=== PATIENT | female | born 1945 | race Caucasian/White ===

== ENCOUNTER 2017-09-28 09:41 | Emergency (ER) | payer MEDICARE ==
--- NOTE | 2017-09-28 10:28 | RAD ---
SACRUM AND COCCYX 3 VIEWS: Date: 09/28/17 HISTORY: Fall. Low back pain. FINDINGS/IMPRESSION: No displaced fracture or dislocation is seen. POS: [facility]
--- NOTE | 2017-09-28 10:31 | RAD ---
LUMBAR SPINE 3 VIEWS: Date: 09/28/17 HISTORY: Fall, back pain. FINDINGS/IMPRESSION: Degenerative changes are present. There is minimal anterolisthesis of L4 over L5 and L3 over L4 verte bral bodies. There is suggestion of a nondisplaced fracture involving the proximal coccyx. POS: [facility]
[2017-09-28] MEDS ORDERED: Ketorolac Tromethamine 30 MG/ML VIAL ONE (10:58)
--- NOTE | 2017-09-28 11:15 | CT ---
CT BRAIN WITHOUT CONTRAST: HISTORY: Fall. Hit back of head. No loss of consciousness. Headache. FINDINGS: No evidence of infarct, hemorrhage, midline shift, or abnormal extraaxial fluid collections is seen. The ventricular size is normal and the basilar cisterns are patent. The bony calvarium is intact. The visualized paranasal sinuses are well aerated. IMPRESSION: No CT evidence of acute intracranial process. POS: [facility]
--- NOTE | 2017-09-29 07:38 | RAD ---
SACRUM AND COCCYX 3 VIEWS: Date: 09/1217 HISTORY: Fall, low back pain. FINDINGS/IMPRESSION: There is a questionable nondisplaced fracture involving the proximal coccyx, which is better seen on the lumbar radiographs from the same date. POS: [facility]
== END 2017-09-28 11:21 | disposition home or self-care (01) ==
LOC: SCSER 09:41
DX: S32.2XXA Fracture of coccyx, initial encounter for closed fracture (principal); R51 Headache; J44.9 Chronic obstructive pulmonary disease, unspecified; I10 Essential (primary) hypertension; E03.9 Hypothyroidism, unspecified; Z87.891 Personal history of nicotine dependence; Z79.899 Other long term (current) drug therapy; W01.0XXA Fall on same level from slipping, tripping and stumbling without subsequent striking against object, initial encounter
CPT/HCPCS: 70450; 72100; 72220; 96372; J1885

== ENCOUNTER 2017-10-29 11:16 | Inpatient (IN) | payer MEDICARE ==
--- NOTE | 2017-10-29 11:46 | RAD ---
PORTABLE CHEST 1 VIEW: Date: 10/29/17 Time: 1129 hours HISTORY: Dyspnea. FINDINGS: Comparison made with exam of 10/16/17. The heart size is normal. Changes of COPD are again seen. No focal areas of consolidation, pneumothor ax, or pleural effusions are seen. Left humeral head prosthesis remains in place. IMPRESSION: No acute process. POS: [facility]
[2017-10-29 12:30] LABS: #Eosinphils 0.1 thou/uL (0.0-0.7); #Lymphocytes 1.2 thou/uL (1.20-3.40); #Monocytes 0.9 thou/uL (0.11-0.59); #Neutrophils 8.5 thou/uL (1.40-6.50); %Basophils 0.2 % (0.0-1.0); %Eosinophils 0.9 % (0.0-10.0); %Lymphocytes 11.2 % (21.0-51.0); %Monocytes 8.4 % (0.0-10.0); %Neutrophils 79.3 % (42.0-75.0); Hemoglobin 13.7 g/dL (12.0-16.0); Mean Corpuscular Hemoglobin 31.3 pg (27.0-31.0); Mean Corpuscular Volume 94.8 fl (81.0-99.0); Mean Platelet Volume 8.4 fL (7.4-10.4); Platelet Count 244 thou/uL (130-400); RBC Distribution Width 12.7 % (11.5-14.5); Red Blood Cell (RBC) Count 4.36 mill/uL (4.20-5.40); White Blood Cell (WBC) Count 10.7 thou/uL (4.8-10.8)
[2017-10-29] MEDS ORDERED: Albuterol Sulfate 2.5 mg/3 ml Neb ONE ×2 (12:39→15:26)
[2017-10-29] MEDS ORDERED: Dexamethasone 10 MG/ML VIAL ONE (12:39)
[2017-10-29 12:42] LABS: ALT (SGPT) 16 U/L (8-55); AST (SGOT) 15 U/L (5-34); Albumin 3.6 g/dL (3.4-4.8); Alkaline Phosphatase 59 U/L (40-150); Anion Gap 11 mmol/L (10-20); BUN (Urea Nitrogen) 7 mg/dL (9.8-20.1); Bilirubin, Total 0.5 mg/dL (0.2-1.2); CK (CPK) 44 U/L (29-168); Calc. Creatinine Clearance 0 mL/min (70-130); Calcium 9.1 mg/dL (7.8-10.44); Carbon Dioxide 30 mmol/L (23-31); Chloride 90 mmol/L (98-107); Estimated GFR-MDRD Greater than 90; Globulin 2.8 g/dL (2.4-3.5); Glucose 114 mg/dL (80-115); Potassium 4.1 mmol/L (3.5-5.1); Protein, Total 6.4 g/dL (6.0-8.3); Sodium 127 mmol/L (136-145)
[2017-10-29 12:58] LABS: CKMB 2.6 ng/mL (0-6.6)
[2017-10-29] MEDS ORDERED: Albuterol Sulfate 2.5 mg/0.5 ml Neb ONE (15:26)
[2017-10-29 16:37] VITALS: BMI 19.5
[2017-10-29] MEDS ORDERED: Docusate 100 MG CAP PO PRN (17:18)
[2017-10-29] MEDS ORDERED: Promethazine 25 MG TAB PO PRN (17:18)
[2017-10-29] MEDS ORDERED: Acetaminophen 500 MG TAB PO PRN (17:18)
[2017-10-29] MEDS ORDERED: Ondansetron HCl/PF 4 MG/2 ML Vial IVP PRN (17:18)
[2017-10-29] MEDS ORDERED: Mag-Al 1200 mg/1200 mg/30 ML UDCUP PO PRN (17:18)
[2017-10-29] MEDS ORDERED: traMADol HCl 50 MG TAB PO PRN (17:19)
[2017-10-29 17:53] LABS: Anion Gap 13 mmol/L (10-20); BUN (Urea Nitrogen) 8 mg/dL (9.8-20.1); Calc. Creatinine Clearance 74 mL/min (70-130); Calcium 9.8 mg/dL (7.8-10.44); Carbon Dioxide 28 mmol/L (23-31); Chloride 93 mmol/L (98-107); Estimated GFR-MDRD Greater than 90; Glucose 162 mg/dL (80-115); Potassium 4.1 mmol/L (3.5-5.1); Sodium 130 mmol/L (136-145)
[2017-10-29] MEDS: Albuterol Sulfate 2.5 mg/3 ml Neb NEB SCH (18:17)
[2017-10-29] MEDS: Ipratropium Bromide 2.5 ml Neb NEB SCH ×2 (18:18→23:14)
[2017-10-29] MEDS: Mometasone/Formoterol 120 PUFF INHALER INH SCH (18:18)
[2017-10-29] MEDS: Clindamycin/D5W 300 MG/50 ML BAG IVPB SCH ×2 (18:27→23:39)
[2017-10-29 19:22] LABS: Bilirubin Negative (Negative); Blood, Urine Negative (Negative); Clarity CLEAR (Clear); Glucose, Urine (Dipstick) Negative (Negative); Leukocyte Negative (Negative); Nitrite Negative (Negative); Protein, Urine (Dipstick) Negative (Neg-Trace); Specific Gravity, Urine 1.009 (1.002-1.036); pH, Urine 5.5 (5.0-9.0)
[2017-10-29 19:28] LABS: Osmolality, Urine 209 mOsm/kg (300-900)
[2017-10-29 19:38] LABS: Creatinine, Urine 46.32 mg/dL (47-110); Sodium, Urine Less than 20 mmol/L (Not Available)
[2017-10-29] MEDS: tiZANidine HCl 4 MG TAB PO SCH (20:23)
[2017-10-29] MEDS: Famotidine 20 MG TAB PO SCH (20:24)
[2017-10-29] MEDS: Amlodipine 5 MG TAB PO SCH (20:24)
--- NOTE | 2017-10-29 20:25 | HP ---
DATE OF SERVICE: 10/29/2017 PRIMARY CARE PHYSICIAN: Dr. Bridger Abraham. CHIEF COMPLAINT: Shortness of breath. HISTORY OF PRESENT ILLNESS: Approximately 3 weeks ago, the patient gagged and choked on pill with po ssible aspiration, since then has been diagnosed with COPD exacerbation and has gone through outpatie nt steroid pack and was followed up in clinic [address] Lord and was started on Levaquin. Th e patient has had some intolerance to LEVAQUIN secondary to gastrointestinal upset. She has had a fl are up of her gastroesophageal reflux disease. She is compliant with her omeprazole. The patient in termittently takes baclofen secondary to prior injury to back and neck and has had some additional sp asms of bladder and neck recently. The patient normally on home oxygen for COPD baseline at high dos e Advair and Spiriva, has been compliant with those that has not missed anything. No fevers reported . The patient significantly confused, fatigued and noted normal labs in August with sodium of 141-1 42, normal thyroid at that point in time via TSH and free T4 were reviewed with the patient. The pat ient states she does feel some symptoms of bladder retention here in the last several days. MORE FORMAL REVIEW OF SYSTEMS: No fever, no chills. Positive fatigue. No change in vision. Positi ve cough, positive wheezing. No chest pain. Positive GERD. No abdomen pain. Positive bladder spas m. No lower extremity edema. Nauseated with postnasal drip. No emesis or stool changes. PHYSICAL EXAMINATION: VITAL SIGNS: On arrival to floor, temperature 99.9, pulse of 90, respiratory rate of 20, oxygen satu ration 94% on 2-3 liters nasal cannula, blood pressure of 101/54. LABORATORY WORK AND X-RAY FINDINGS: Sodium of 127, potassium of 4.1, chloride of 90, CO2 of 30, BUN of 7, creatinine 0.5, glucose of 114, calcium of 9.1, total bilirubin of 0.5, AST of 15, ALT of 16. Troponin x1 at 0.01, less than albumin of 3.4. White blood cell count 10.7, hemoglobin of 13.7, plat elet count of 244. Chest x-ray without acute cardiopulmonary events, expansion consistent with chron ic COPD changes. PAST MEDICAL HISTORY: Includes COPD, hypertension, gastroesophageal reflux disease, hyperlipidemia, hypothyroidism, seasonal allergies, primary osteoarthritis of left shoulder, polio in 1948, rheumatic fever in 1953, history of anxiety, history of irritable bowel disease. PAST SURGICAL HISTORY: Left shoulder surgery, tonsils and adenoids removed, hysterectomy in 1976, pa rtial colon resection in 1988, exploratory laparotomy hernia repair in 1990, appendectomy in 1998, ca rdiac ablation in 2003, stress test last listed in 2011. HOME MEDICATIONS: Include Tizanidine 4 mg 1 to 1-1/2 tab t.i.d. p.r.n. for muscle spasm, albuterol 9 0 mcg per inhalation 2 puffs q.4 hours p.r.n. shortness breath or cough, Advair 500/50 mcg 1 inhalati on twice daily, Spiriva 18 mcg 1 inhalation daily, omeprazole 40 mg 1 tab p.o. daily, tramadol 50 mg 1 tab p.o. q.6 hours p.r.n. for pain of back and neck, amlodipine 5 mg 1 tab p.o. daily, Levaquin 750 one tab p.o. daily, levothyroxine 50 mcg 1 tab p.o. daily. SOCIAL HISTORY: The patient is a former smoker, quit in 2006. PHYSICAL EXAMINATION: GENERAL: The patient is alert and oriented, in mild respiratory distress. HEENT: Head is normocephalic, atraumatic. Extraocular movements are intact. Sclerae are clear. Or al mucosa is moist. Nasal cannula in place. NECK: Supple yet, somewhat tender to palpation of cervical spine. HEART: Regular rate and rhythm. No murmurs auscultated. LUNGS: With very poor air movement, wheezes only auscultated with posttussive effort. No rhonchi or rales present. ABDOMEN: Soft, nontender, positive bowel sounds throughout. EXTREMITIES: Lower extremities without cyanosis or edema. NEUROLOGIC: The patient is alert and oriented x3, no focal deficits. Speech is normal. ASSESSMENT AND PLAN: Chronic obstructive pulmonary disease exacerbation, hyponatremia. Changing ant ibiotic to clindamycin, continuing IV steroids started in the emergency department and breathing bernardino tments scheduled. Patient currently on 1500 mL of fluid restriction. We will follow up urine and se rum studies regarding osmolality and sodium for further diagnosis. Rechecking TSH, although was norm al in August for any instability. Continue patient's home medications otherwise. Given recent flar eup of gastroesophageal reflux disease, we will add an H2 mira regarding Pepcid 20 mg b.i.d. If t he patient stays longer than 24 hours, we would recommend prophylaxis with Lovenox tomorrow. The pat ient's sodium able to improve into the 130s, the patient would like to be discharged if respiratory s table with her home oxygen with continued steroids and antibiotics. We will check out to Dr. Lico Abraham in the morning.
[2017-10-29] MEDS ORDERED: Ipratropium Bromide 2.5 ml Neb NEB SCH (23:00)
[2017-10-30 04:59] LABS: #Lymphocytes 0.5 thou/uL (1.20-3.40); #Monocytes 0.2 thou/uL (0.11-0.59); #Neutrophils 9.6 thou/uL (1.40-6.50); %Basophils 0.1 % (0.0-1.0); %Eosinophils 0.2 % (0.0-10.0); %Lymphocytes 4.8 % (21.0-51.0); %Monocytes 1.8 % (0.0-10.0); %Neutrophils 93.1 % (42.0-75.0); Hemoglobin 13.3 g/dL (12.0-16.0); Mean Corpuscular HGB CONC 33.1 g/dL (32.0-36.0); Mean Corpuscular Hemoglobin 30.8 pg (27.0-31.0); Mean Corpuscular Volume 93.2 fl (81.0-99.0); Platelet Count 285 thou/uL (130-400); RBC Distribution Width 12.7 % (11.5-14.5); Red Blood Cell (RBC) Count 4.32 mill/uL (4.20-5.40); White Blood Cell (WBC) Count 10.3 thou/uL (4.8-10.8)
[2017-10-30 05:22] LABS: ALT (SGPT) 16 U/L (8-55); AST (SGOT) 12 U/L (5-34); Albumin 3.7 g/dL (3.4-4.8); Alkaline Phosphatase 63 U/L (40-150); Anion Gap 10 mmol/L (10-20); BUN (Urea Nitrogen) 12 mg/dL (9.8-20.1); Bilirubin, Total 0.3 mg/dL (0.2-1.2); Calc. Creatinine Clearance 72 mL/min (70-130); Calcium 9.4 mg/dL (7.8-10.44); Carbon Dioxide 31 mmol/L (23-31); Chloride 93 mmol/L (98-107); Estimated GFR-MDRD Greater than 90; Globulin 2.8 g/dL (2.4-3.5); Glucose 200 mg/dL (80-115); Potassium 4.2 mmol/L (3.5-5.1); Protein, Total 6.5 g/dL (6.0-8.3); Sodium 130 mmol/L (136-145)
[2017-10-30] MEDS: Levothyroxine Sodium 50 MCG TAB PO SCH (05:34)
[2017-10-30] MEDS: Clindamycin/D5W 300 MG/50 ML BAG IVPB SCH (05:35)
[2017-10-30] MEDS: Albuterol Sulfate 2.5 mg/3 ml Neb NEB SCH ×3 (06:12→13:13)
[2017-10-30] MEDS: Ipratropium Bromide 2.5 ml Neb NEB SCH ×2 (06:12→13:12)
[2017-10-30] MEDS: Mometasone/Formoterol 120 PUFF INHALER INH SCH ×2 (06:21→21:00)
[2017-10-30] MEDS ORDERED: Clindamycin 150 MG CAP PO SCH (08:30)
--- NOTE | 2017-10-30 08:48 | PRG ---
DATE OF SERVICE: 10/30/2017 SUBJECTIVE: The patient is feeling slightly better. She has improved shortness of breath on oxygen. Upon walking in the room to the bathroom she becomes hypoxic and more short of breath, still compla ins of cough, no chest pain, no nausea and vomiting. No fever, no falls at home. She is tolerating antibiotics. She has a history of aspiration pneumonia. PHYSICAL EXAMINATION: VITAL SIGNS: Temperature 98.3, pulse of 102, respirations 20, blood pressure 100/60, pulse ox 98% on 2 liters nasal cannula. GENERAL: She is awake and alert, has some conversational dyspnea. NECK: Supple. HEART: Regular rate and rhythm. LUNGS: With decreased breath sounds throughout. Positive expiratory wheezes, occasional rhonchi. ABDOMEN: Flat, soft. EXTREMITIES: No edema. LABORATORY DATA: Sodium 130, potassium 4.2, chloride 93, CO2 of 31, BUN and creatinine 12 and 0.61. Serum glucose of 200. TSH of 0.25. White blood cell count 10.3, hemoglobin and hematocrit 13.3 and 40.3, platelets of 285. Chest x-ray reviewed from yesterday which revealed COPD changes. No consolidation, pneumothorax, ple ural effusion. ASSESSMENT AND PLAN: 1. This is a 72-year-old female with chronic obstructive pulmonary disease exacerbation and failed o utpatient management with antibiotics, oral steroids. She has had significant improvement with IV st eroids, frequent nebulizer treatments. She states that she is doing better on the Dulera than she do es on the Advair and Spiriva. 2. We will consult Dr. Christian for further evaluation as her primary wireless team member. I will switch t o oral antibiotics. Hopefully, home in the morning. 3. Hyponatremia, improved. We will continue to follow and continue fluid restriction. 4. DVT prevention with subcutaneous Lovenox. 5. Gastrointestinal protection. We will continue proton pump inhibitor and H2 mira.
[2017-10-30] MEDS: Famotidine 20 MG TAB PO SCH ×2 (08:58→20:20)
[2017-10-30] MEDS: Enoxaparin Sodium 40 MG/0.4 ML SYRINGE SC SCH (08:58)
[2017-10-30] MEDS ORDERED: Sterile Water 10 ML ONE (14:42)
[2017-10-30] MEDS: Benzonatate 100 MG CAP PO PRN ×2 (14:50→20:19)
[2017-10-30] MEDS: Clindamycin 150 MG CAP PO SCH ×2 (14:50→21:57)
--- NOTE | 2017-10-30 18:09 | CON ---
DATE OF CONSULTATION: 10/30/2017 HISTORY OF PRESENT ILLNESS: Ms. Guerrero is a 72-year-old female patient of Dr. Christian, who was admitt ed with chronic obstructive pulmonary disease exacerbation and bronchitis. A week ago, she apparentl y felt like she aspirated a pill. She cultured up. Ever since then, her primary care physician has been concerned about aspiration pneumonia. I reviewed a chest x-ray. I do not see any evidence of a spiration pneumonia. She has been followed by Dr. Christian for a long period of time. She is a former smoker. She had a h istory of TB or asthma. Mostly, she can barely walk even 20 feet without getting markedly short of breath. She is on O2, 24 hours a day. In fact, she has recently finished of antibiotic and prednisone. PAST MEDICAL HISTORY: COPD, hypertension, hypothyroidism. PAST SURGICAL HISTORY: Left shoulder, ankle, hysterectomy, tonsillectomy. HABITS: Tobacco a pack a day, quit smoking 10 years ago. CHRONIC MEDICATIONS: From home includes tizanidine 4 mg, Spiriva, omeprazole, Synthroid, Xopenex, Ad vair. ALLERGIES: SULFA, STATINS. SOCIAL HISTORY: No alcohol, tobacco as noted. REVIEW OF SYSTEMS: Ten point negative. Please note, old records and x-rays all reviewed. PHYSICAL EXAMINATION: GENERAL: Mild distress. VITAL SIGNS: Blood pressure is 100/60, sats are 98% on 2 L, temperature 98, respiration rate 18. CHEST: Decreased breath sounds, no wheezing. Expiration prolonged. CARDIAC: Normal S1, S2. No gallops. ABDOMEN: Soft, no mass. LABORATORY DATA: White count 10,000, H and H 13 and 40, platelet count is normal. Sodium is 130, an d glucose 280. IMPRESSION: 1. bronchitis. 2. Hyponatremia. I am surprised she is hyponatremic. Recheck thyroid level which was adequate. I agree with nebulizer treatments, steroids. We will notify Dr. Christian. Consultation note 70 minutes of which 50% was spent on direct patient care.
[2017-10-30] MEDS: tiZANidine HCl 4 MG TAB PO SCH (20:19)
[2017-10-30] MEDS: Amlodipine 5 MG TAB PO SCH (20:20)
[2017-10-31] MEDS: Albuterol Sulfate 2.5 mg/3 ml Neb NEB SCH (00:48)
[2017-10-31] MEDS: Ipratropium Bromide 2.5 ml Neb NEB SCH (00:49)
[2017-10-31] MEDS: Clindamycin 150 MG CAP PO SCH ×3 (05:18→19:59)
[2017-10-31] MEDS: Levothyroxine Sodium 50 MCG TAB PO SCH (05:18)
[2017-10-31 05:19] LABS: Anion Gap 10 mmol/L (10-20); BUN (Urea Nitrogen) 9 mg/dL (9.8-20.1); Calc. Creatinine Clearance 78 mL/min (70-130); Calcium 9.1 mg/dL (7.8-10.44); Carbon Dioxide 33 mmol/L (23-31); Chloride 93 mmol/L (98-107); Estimated GFR-MDRD Greater than 90; Glucose 153 mg/dL (80-115); Potassium 4.7 mmol/L (3.5-5.1); Sodium 131 mmol/L (136-145)
[2017-10-31] MEDS: Benzonatate 100 MG CAP PO PRN (05:22)
[2017-10-31] MEDS: Mometasone/Formoterol 120 PUFF INHALER INH SCH ×2 (07:00→17:59)
[2017-10-31] MEDS: Famotidine 20 MG TAB PO SCH ×2 (09:14→19:59)
[2017-10-31] MEDS: Enoxaparin Sodium 40 MG/0.4 ML SYRINGE SC SCH (09:16)
--- NOTE | 2017-10-31 10:47 | PRG ---
DATE OF SERVICE: 10/31/2017 SUBJECTIVE: The patient is feeling minimally better. She has worsening cough and tightness in her c hest. She is ambulating in the bishop, but developed shortness of breath even going to the bathroom. She still does not feel comfortable going home and managing herself even with the assistance of her jose alejandro cardenas. She is tolerating the antibiotics better at this time. OBJECTIVE: VITAL SIGNS: Temperature 98.4, pulse of 89, respirations 18, blood pressure 105/68, pulse ox 96% on 2 liters nasal cannula. GENERAL: She is awake and alert, some conversational dyspnea with tightness in her breath, persisten t coughing. HEENT: Mucosa is moist. NECK: Supple. HEART: Regular rate and rhythm. LUNGS: With decreased breath sounds throughout, scattered rhonchi with wheezing on occasion. ABDOMEN: Soft, some epigastric tenderness, no rebound, no guarding. EXTREMITIES: No edema. LABORATORY DATA: Sodium 131, potassium 4.7, chloride 93, CO2 of 33, BUN and creatinine 9 and 0.56, s nighat glucose of 153, calcium of 9.1. TSH 0.2495. Urinalysis was reviewed. Chest x-ray reviewed. ASSESSMENT AND PLAN: 1. This is a 72-year-old female patient with known chronic obstructive pulmonary disease, admitted f or chronic obstructive pulmonary disease exacerbation and asthmatic bronchitis. She has had minimal improvement with steroids and nebulizer treatments. We will continue current course. I appreciate Jose Alejandro Patel's input. 2. Hyponatremia. We will continue to follow. Review urine studies. 3. Weakness and deconditioning. We will start walking program and consider PT if she worsens.
[2017-10-31 12:37] LABS: Osmolality, Urine 239 mOsm/kg (300-900)
[2017-10-31 12:43] LABS: Potassium, Urine 18.5 mmol/L; Sodium, Urine Less than 20 mmol/L (Not Available)
--- NOTE | 2017-10-31 17:32 | PRG ---
DATE OF SERVICE: 10/31/2017 SUBJECTIVE: Catalina Guerrero is still coughing, still short of breathing, still wheezing. Sputum is clear. OBJECTIVE: VITAL SIGNS: Sats 92% on 2 liters, temperature 98, blood pressure 105/68. CHEST: Prolonged expiration, minimal wheezing. CARDIAC: Normal S1 and S2. ABDOMEN: Soft. No masses. IMPRESSION: COPD exacerbation\ bronchitis. I see no evidence of any aspiration pneumonia. PLAN: Continue neb treatments, steroids. We will notify Dr. Christian on Thursday. [facility]
[2017-10-31] MEDS: guaiFENesin ER 600 MG TAB PO SCH (19:59)
[2017-10-31] MEDS: Amlodipine 5 MG TAB PO SCH (19:59)
[2017-11-01] MEDS ORDERED: Nitroglycerin 0.4 MG TAB (25 Tab Bottle) SL PRN (03:16)
[2017-11-01 03:31] LABS: CKMB 3.9 ng/mL (0-6.6); Troponin I Less than 0.010 ng/mL (< 0.028)
[2017-11-01 03:51] LABS: ALT (SGPT) 21 U/L (8-55); AST (SGOT) 15 U/L (5-34); Albumin 3.5 g/dL (3.4-4.8); Alkaline Phosphatase 55 U/L (40-150); Anion Gap 11 mmol/L (10-20); BUN (Urea Nitrogen) 13 mg/dL (9.8-20.1); Bilirubin, Total 0.2 mg/dL (0.2-1.2); Calc. Creatinine Clearance 71 mL/min (70-130); Calcium 9.4 mg/dL (7.8-10.44); Carbon Dioxide 35 mmol/L (23-31); Chloride 93 mmol/L (98-107); Estimated GFR-MDRD Greater than 90; Globulin 2.5 g/dL (2.4-3.5); Glucose 156 mg/dL (80-115); Potassium 4.3 mmol/L (3.5-5.1); Sodium 135 mmol/L (136-145)
[2017-11-01] MEDS: Levothyroxine Sodium 50 MCG TAB PO SCH (05:35)
[2017-11-01] MEDS: Clindamycin 150 MG CAP PO SCH (05:35)
[2017-11-01 06:16] VITALS: TEMP 98.1
[2017-11-01 07:07] LABS: CKMB 3.4 ng/mL (0-6.6); Troponin I Less than 0.010 ng/mL (< 0.028)
[2017-11-01] MEDS: Mometasone/Formoterol 120 PUFF INHALER INH SCH (07:18)
[2017-11-01 07:25] VITALS: BP 140/70
[2017-11-01] MEDS: Famotidine 20 MG TAB PO SCH (08:36)
[2017-11-01] MEDS: guaiFENesin ER 600 MG TAB PO SCH (08:36)
[2017-11-01] MEDS: Enoxaparin Sodium 40 MG/0.4 ML SYRINGE SC SCH (08:37)
--- NOTE | 2017-11-01 16:13 | DIS ---
DATE OF ADMISSION: 10/29/2017 DATE OF DISCHARGE: 11/01/2017 ADMISSION DIAGNOSES: 1. Chronic obstructive pulmonary disease exacerbation. 2. Hyponatremia. 3. Gastroesophageal reflux disease. 4. Chest pain. DISCHARGE DIAGNOSIS: Chronic obstructive pulmonary disease, improved. CONSULTATIONS: Dr. Patel for Pulmonary. PROCEDURE PERFORMED: Telemetry monitoring, rule out [place] protocol. HOSPITAL COURSE: This is a 72-year-old female patient with a long-term COPD, usually follows with Dr Augustine Christian, who presented to the Emergency Department with worsening shortness of breath. She was see n as an outpatient. Two days prior to admission, was started on Levaquin and she had severe side eff ects as far as GI symptoms and increased abdominal pain with the Levaquin. She was admitted. She wa s started on IV steroids, oxygen therapy and nebulizer treatments. Her antibiotics were changed to c lindamycin. She had slow improvement. She was seen by Dr. Patel for Pulmonary. He agreed with the a dmission and recommended continuing the steroids, neb treatments and antibiotics. He was surprised b y the hyponatremia and this improved during her hospitalization with fluid restriction. Her sodium r eturned to normal. She had slow resolution, but finally had some improvement of her symptoms and sta ble for discharge home. DISCHARGE PHYSICAL EXAMINATION: VITAL SIGNS: Temperature 98.1, pulse of 83, respirations 16-18, blood pressure 140/70 and pulse ox 9 7% on 2 liters. GENERAL: She is awake and alert, in no acute distress. Decreased conversational dyspnea since the last couple of days. HEENT: Mucosa is moist. NECK: Supple. CARDIOVASCULAR: Heart sounds are distant, but no murmurs auscultated. LUNGS: With decreased breath sounds, improved aeration since yesterday, some expiratory wheezes. No rhonchi. ABDOMEN: Flat. Positive epigastric tenderness. No rebound, no guarding, no hepatosplenomegaly. EXTREMITIES: No clubbing, cyanosis or edema. 2+ peripheral pulses bilaterally. LABORATORY DATA: Sodium 135 up from 127, potassium 4.3, chloride 93, CO2 of 35, BUN and creatinine 1 3 and 0.62 with a GFR greater than 90. Serum glucose was 156. Cardiac enzymes were negative x2. DISCHARGE MEDICATIONS: Include Tylenol p.r.n., Maalox p.r.n. indigestion, DuoNebs q.4 hours p.r.n., amlodipine 5 mg daily, clindamycin 300 mg t.i.d. with food for 7 more days, Colace p.r.n. constipatio n, Pepcid 20 mg b.i.d. while on steroids, Mucinex 600 mg q.12 hours, Synthroid 50 mcg daily, methylpr ednisolone Dosepak taper, Dulera 200/5 b.i.d. and Protonix 40 mg b.i.d. FOLLOWUP INSTRUCTIONS: The patient to follow up in my office in 1-[address] Christian in 1-2 wee ks as well. We will likely need a follow up with Dr. Bhakta for possible esophageal stricture versus spasms with her history of peptic ulcer disease.
--- NOTE | 2017-11-01 18:41 | PRG ---
DATE OF SERVICE: 11/01/2017 SUBJECTIVE: Ms. Catalina Guerrero is being discharged home by primary care physician. OBJECTIVE: VITAL SIGNS: Sats are 97% on 2 liters, temperature is 98.6 and respirations 16. GENERAL: She says she is better. CHEST: Decreased breath sounds, prolonged expiration. CARDIAC: Normal S1 and S2. ABDOMEN: Soft. No masses. LABORATORY DATA: Electrolytes are normal. Sodium 135, . IMPRESSION: 1. Chronic obstructive pulmonary disease exacerbation. 2. pneumonia. 3. Hyponatremia, resolved. PLAN: She is to follow up with Dr. Christian in 7 weeks. Taper prednisone over 2 weeks. Neb treatmen t and supportive care.
--- NOTE | 2017-11-03 20:19 | EKG ---
Test Reason : STAT Blood Pressure : / mmHG Vent. Rate : 086 BPM Atrial Rate : 086 BPM P-R Int : 144 ms QRS Dur : 134 ms QT Int : 376 ms P-R-T Axes : 079 092 059 degrees QTc Int : 449 ms Sinus rhythm with Premature supraventricular complexes and with occasional Premature ventricular comp lexes Biatrial enlargement Right bundle branch block Septal infarct , age undetermined Abnormal ECG When compared with ECG of 29-OCT-2017 11:47, (Unconfirmed) Fusion complexes are no longer Present Premature supraventricular complexes are now Present Septal infarct is now Present T wave inversion no longer evident in Anterior leads Confirmed by DEAN TARANGO ([id number]) on 11/03/2017 8:19:02 PM Referred By: Naomie MONIQUE Confirmed By:DEAN TARANGO
--- NOTE | 2017-11-21 21:13 | EKG ---
Test Reason : Blood Pressure : / mmHG Vent. Rate : 094 BPM Atrial Rate : 094 BPM P-R Int : 144 ms QRS Dur : 130 ms QT Int : 380 ms P-R-T Axes : 084 094 012 degrees QTc Int : 475 ms Sinus rhythm with sinus arrhythmia with Premature ventricular complexes or Fusion complexes Biatrial enlargement Right bundle branch block T wave abnormality, consider lateral ischemia Abnormal ECG Artifact present Confirmed by LEE MESSER MD ([id number]), assignment editor CEICL JIMENEZ ([id number]) on 11/21/2017 9:13:03 PM Referred By: Confirmed By:LEE MESSER MD
== END 2017-11-01 11:30 | disposition home or self-care (01) | DRG 191 ==
LOC: ERS 11:16 → 2SW 15:05 → OBSVTOIN 15:05 → T4-A 10-30 11:45
PROVIDERS: ADMIT Family Medicine; ATTEND Family Medicine
DX: J44.1 Chronic obstructive pulmonary disease with (acute) exacerbation (principal); E87.1 Hypo-osmolality and hyponatremia; I10 Essential (primary) hypertension; K21.9 Gastro-esophageal reflux disease without esophagitis; E78.5 Hyperlipidemia, unspecified; E03.9 Hypothyroidism, unspecified; F41.9 Anxiety disorder, unspecified; Z87.891 Personal history of nicotine dependence; Z86.12 Personal history of poliomyelitis; Z79.899 Other long term (current) drug therapy
CPT/HCPCS: 36415; 71045; 80048; 80053; 81003; 82550; 82553; 82570; 83930; 83935; 84133; 84300; 84443; 84484; 85025; 93005; 93010; 94640; 94760; 96374; 99213; A4216; G0463; J1100; J1650; J2405; J2920; J3490; J7611; J7620; J7644

== ENCOUNTER 2018-07-05 13:51 | Outpatient (CLI) | payer MEDICARE ==
--- NOTE | 2018-07-05 15:40 | RAD ---
TWO VIEW CHEST: Comparison: 10-29-17 Clinical history: Dyspnea. FINDINGS: Lungs are hyperinflated. There is no lobar consolidation or effusion. No discrete pneumothorax. Cardi ac silhouette is normal in size. IMPRESSION: COPD. POS: [facility]
== END 2018-07-05 13:52 | disposition home or self-care (01) ==
LOC: RAD 13:51
PROVIDERS: ATTEND Internal Medicine Critical Care Medicine
DX: R06.00 Dyspnea, unspecified (principal); J44.9 Chronic obstructive pulmonary disease, unspecified
CPT/HCPCS: 71046

== ENCOUNTER 2018-12-04 13:21 | Emergency (ER) | payer MEDICARE ==
[~2018-12-04 13:21] MED LIST: ISOVUE-370 76%-LOCM 1 ML ONE
[2018-12-04 14:23] LABS: #Basophils 0.1 thou/uL (0.0-0.2); #Eosinphils 0.1 thou/uL (0.0-0.7); #Lymphocytes 1.7 thou/uL (1.20-3.40); #Monocytes 0.6 thou/uL (0.11-0.59); #Neutrophils 6.6 thou/uL (1.40-6.50); %Basophils 0.7 % (0.0-1.0); %Eosinophils 1.1 % (0.0-10.0); %Lymphocytes 18.7 % (21.0-51.0); %Monocytes 6.3 % (0.0-10.0); %Neutrophils 73.2 % (42.0-75.0); Hemoglobin 14.7 g/dL (12.0-16.0); Mean Corpuscular HGB CONC 31.3 g/dL (32.0-36.0); Mean Corpuscular Hemoglobin 30.2 pg (27.0-31.0); Mean Corpuscular Volume 96.5 fL (78.0-98.0); Mean Platelet Volume 8.3 fL (7.4-10.4); Platelet Count 238 thou/uL (130-400); RBC Distribution Width 12.1 % (11.5-14.5); Red Blood Cell (RBC) Count 4.87 mill/uL (4.20-5.40)
[2018-12-04 14:44] LABS: ALT (SGPT) 13 U/L (8-55); AST (SGOT) 18 U/L (5-34); Albumin 4.2 g/dL (3.4-4.8); Alkaline Phosphatase 66 U/L (40-150); Anion Gap 9 mmol/L (10-20); BUN (Urea Nitrogen) 9 mg/dL (9.8-20.1); Bilirubin, Total 0.3 mg/dL (0.2-1.2); Calc. Creatinine Clearance 0 mL/min (70-130); Calcium 9.7 mg/dL (7.8-10.44); Carbon Dioxide 37 mmol/L (23-31); Chloride 97 mmol/L (98-107); Estimated GFR-MDRD Greater than 90; Globulin 2.7 g/dL (2.4-3.5); Glucose 108 mg/dL (83-110); Potassium 3.8 mmol/L (3.5-5.1); Protein, Total 6.9 g/dL (6.0-8.3); Sodium 139 mmol/L (136-145)
--- NOTE | 2018-12-04 16:39 | CT ---
MAXILLOFACIAL CT: 12/04/18 HISTORY: Left sided jaw swelling. Contrast enhanced CT images of the mandible and maxilla obtained. IV contrast was given. There is asymmetric enlargement of the left parotid gland. No definite mass is seen. No evidence of significant abscess is seen. No significant evidence of lymphadenopathy seen. IMPRESSION: Asymmetric enlargement of the left parotid gland, otherwise unremarkable CT of mandible and maxilla. Bilateral distal common carotid and proximal internal carotid artery vascular calcifications seen. POS: [facility]
== END 2018-12-04 17:24 | disposition home or self-care (01) ==
LOC: ERS 13:21
DX: K11.20 Sialoadenitis, unspecified (principal); J44.9 Chronic obstructive pulmonary disease, unspecified; I10 Essential (primary) hypertension; E03.9 Hypothyroidism, unspecified; Z87.891 Personal history of nicotine dependence
CPT/HCPCS: 36415; 70487; 80053; 85025; Q9966

== ENCOUNTER 2019-01-17 14:14 | Outpatient (CLI) | payer MEDICARE ==
--- NOTE | 2019-01-17 15:59 | MMO ---
Bilateral MAMMO Bilat Screen [facility]. CLINICAL HISTORY: Patient is 73 years old and is seen for screening. The patient has no family history of breast cancer. The patient has no personal history of cancer. VIEWS: The views performed were: bilateral craniocaudal with tomosynthesis and bilateral mediolateral oblique with tomosynthesis. FILMS COMPARED: The present examination has been compared to prior imaging studies performed at [facility] on 06/02/2013, 07/17/2015 and 11/20/2016, and at [facility] on 06/30/2007. MAMMOGRAM FINDINGS: There are scattered fibroglandular densities. There are stable benign appearing calcifications seen in both breasts. There are no suspicious masses, suspicious calcifications, or new areas of architectural distortion. IMPRESSION: THERE IS NO MAMMOGRAPHIC EVIDENCE OF MALIGNANCY. A ROUTINE FOLLOW-UP MAMMOGRAM IN 1 YEAR IS RECOMMENDED. THE RESULTS OF THIS EXAM WERE SENT TO THE PATIENT. ACR BI-RADS Category 2 - Benign finding MAMMOGRAPHY NOTE: 1. A negative mammogram report should not delay a biopsy if a dominant of clinically suspicious mass is present. 2. Approximately 10% to 15% of breast cancers are not detected by mammography. 3. Adenosis and dense breasts may obscure an underlying neoplasm.
== END 2019-01-17 14:15 | disposition home or self-care (01) ==
LOC: BICMAMMO 14:14
PROVIDERS: ATTEND Family Medicine
DX: Z12.31 Encounter for screening mammogram for malignant neoplasm of breast (principal)
CPT/HCPCS: 77063; 77067

== ENCOUNTER 2019-07-26 08:15 | Day surgery (SDC) | payer MEDICARE ==
[2019-07-25 13:00] VITALS: BMI 18.4
[2019-07-26] MEDS ORDERED: Lidocaine 1% PF 5 ML VIAL ONE (10:12)
[2019-07-26] MEDS ORDERED: PROPOFOL 200 MG/20 ML VIAL ONE (10:12)
--- NOTE | 2019-07-27 08:48 | OP ---
DATE OF PROCEDURE: 07/26/2019 PROCEDURES PERFORMED: 1. Esophagogastroduodenoscopy with dilatation. 2. Colonoscopy with polypectomy, saline-assisted snare. PREPROCEDURE DIAGNOSES: 1. Dysphagia. 2. Reflux. 3. Chronic obstructive pulmonary disease. 4. Personal history of colon polyps in 2012. POSTPROCEDURE DIAGNOSES: 1. Normal esophagogastroduodenoscopy with small hiatal hernia. 2. Empiric dilatation performed for sense of dysphagia with 2nd look showing good effect with 18 mm dilation of the entire esophagus. Some effect was noted at the gastroesophageal junction. 3. A 3 cm colon polyp, flat, in the ascending colon, removed by hot snare polypectomy with saline assisted with 2 hemoclips placed. 4. Two small polyps, 5 to 10 mm in size, removed by hot snare polypectomy of the descending and sigmoid colon. 5. A 1.5 cm sessile polyp, removed by saline-assisted snare polypectomy in the descending colon, and submitted to Pathology. RECOMMENDATIONS: 1. Await histopathology. 2. Continue antireflux regimen and PPI therapy. 3. Repeat colonoscopy in 3 years depending on results of polypectomies. ANESTHESIA: TIVA. PROCEDURE IN DETAIL: After the patient was informed of the risk, benefits, and possible complications of endoscopy including perforation, bleeding, reaction to medication, and aspiration, informed consent obtained. The patient was brought to endoscopy suite, where she was sedated in gradual fashion. Once she was comfortable, a bite block was placed inside her orifices. The endoscope was advanced to the esophagus, stomach, and second and third portions of the duodenum and slowly removed. There was a hiatal hernia noted about 4 cm, sliding-type, with a slight Schatzki's ring, but no overt strictures. The esophagus appeared normal with no masses or lesions. The stomach was normal in forward and retroflexed views. The duodenum was normal in 3rd portion. Empiric dilatation was performed in the esophagus secondary to the patient's symptoms dysphagia. Second look showed some mucosal disruption at the GE junction, but no large lacerations or perforation. Other area of the esophagus appeared normal. The scope was removed. The patient was turned to the room and a rectal examination was performed. The endoscope was inserted into the anal canal through the colon to the cecum, which was identified by ileocecal valve and appendiceal orifice. Scope was slowly removed. There was a 3 cm flat polyp in the ascending colon with mucus cap. This was lifted with sterile water of 10 mL, removed with a 2.75 cm hexagonal snare with complete removal in one piece. The defect was closed with 2 hemoclips. Another polyp in the descending colon was noted about 1.5 cm in size and was removed with saline-assisted snare polypectomy in 1 piece and submitted to Pathology. Two other small polyps between 5 and 10 mm in size, removed by hot snare polypectomy as well. Retroflexed views were normal. There was some diverticulosis coli. The prep was good. The scope was removed. The patient tolerated the procedure well. There were no complications. Job ID: [id number]
== END 2019-07-26 12:30 | disposition home or self-care (01) ==
LOC: SDC 08:15
PROVIDERS: ATTEND Internal Medicine Gastroenterology
PROC: 0D758ZZ Dilation of Esophagus, Via Natural or Artificial Opening Endoscopic (ICD-10-PCS; principal; 2019-07-26)
PROC: 0DBK8ZX Excision of Ascending Colon, Via Natural or Artificial Opening Endoscopic, Diagnostic (ICD-10-PCS; 2019-07-26)
PROC: 0DBN8ZX Excision of Sigmoid Colon, Via Natural or Artificial Opening Endoscopic, Diagnostic (ICD-10-PCS; 2019-07-26)
PROC: 0DBM8ZX Excision of Descending Colon, Via Natural or Artificial Opening Endoscopic, Diagnostic (ICD-10-PCS; 2019-07-26)
PROC: 3E0H8GC Introduction of Other Therapeutic Substance into Lower GI, Via Natural or Artificial Opening Endoscopic (ICD-10-PCS; 2019-07-26)
DX: Z12.11 Encounter for screening for malignant neoplasm of colon (principal); D12.3 Benign neoplasm of transverse colon; D12.5 Benign neoplasm of sigmoid colon; K22.2 Esophageal obstruction; K44.9 Diaphragmatic hernia without obstruction or gangrene; K57.30 Diverticulosis of large intestine without perforation or abscess without bleeding; K21.9 Gastro-esophageal reflux disease without esophagitis; J44.9 Chronic obstructive pulmonary disease, unspecified; I10 Essential (primary) hypertension; E78.00 Pure hypercholesterolemia, unspecified; G47.30 Sleep apnea, unspecified; Z86.010 Personal history of colon polyps; Z87.891 Personal history of nicotine dependence; Z79.52 Long term (current) use of systemic steroids; Z79.899 Other long term (current) drug therapy; Z88.2 Allergy status to sulfonamides; Z88.8 Allergy status to other drugs, medicaments and biological substances; Z91.048 Other nonmedicinal substance allergy status; Z99.81 Dependence on supplemental oxygen
CPT/HCPCS: 88305; J2001; J2704

== ENCOUNTER 2019-08-20 00:46 | Emergency (ER) | payer MEDICARE ==
[2019-08-20] MEDS ORDERED: Albuterol Sulfate 2.5 mg/0.5 ml Neb ONE ×9 (01:00→02:03)
[2019-08-20] MEDS ORDERED: Rocuronium Bromide 10 MG/ML (10ML VIAL) ONE ×2 (01:10→03:00)
[2019-08-20] MEDS ORDERED: Ketamine 50 MG/ML (10ML VIAL) ONE ×2 (01:10→02:37)
[2019-08-20 01:11] LABS: #Lymphocytes 2.3 thou/uL (1.20-3.40); #Neutrophils 6.6 thou/uL (1.40-6.50); %Basophils 0.4 % (0.0-1.0); %Eosinophils 0.1 % (0.0-10.0); %Lymphocytes 23.1 % (21.0-51.0); %Monocytes 10.5 % (0.0-10.0); Hemoglobin 14.7 g/dL (12.0-16.0); Mean Corpuscular HGB CONC 31.9 g/dL (32.0-36.0); Mean Corpuscular Hemoglobin 29.9 pg (27.0-31.0); Mean Corpuscular Volume 93.6 fL (78.0-98.0); Mean Platelet Volume 8.3 fL (7.4-10.4); Platelet Count 294 thou/uL (130-400); RBC Distribution Width 12.3 % (11.5-14.5)
[2019-08-20] MEDS ORDERED: Azithromycin 500 MG VIAL ONE (01:23)
[2019-08-20] MEDS ORDERED: fentaNYL Citrate/PF 2,000 MCG in Sodium Chloride 0.9% 60 ML IV SCH ×2 (01:27→02:58)
[2019-08-20 01:29] LABS: ALT (SGPT) 27 U/L (8-55); AST (SGOT) 31 U/L (5-34); Alkaline Phosphatase 58 U/L (40-110); BUN (Urea Nitrogen) 12 mg/dL (9.8-20.1); Bilirubin, Total 0.4 mg/dL (0.2-1.2); CK (CPK) 104 U/L (29-168); Calc. Creatinine Clearance 0 mL/min (70-130); Calcium 8.7 mg/dL (7.8-10.44); Estimated GFR-MDRD Greater than 90; Glucose 139 mg/dL (83-110)
[2019-08-20] MEDS ORDERED: Propofol 1,000 MG/100 ML VIAL IV ONE (01:35)
[2019-08-20 01:39] LABS: Anion Gap 10 mmol/L (10-20); Chloride 83 mmol/L (98-107); Potassium 3.8 mmol/L (3.5-5.1); Sodium 131 mmol/L (136-145)
[2019-08-20 01:45] LABS: Carbon Dioxide 42 mmol/L (23-31)
[2019-08-20 02:18] LABS: Bacteria/HPF None Seen HPF (None Seen); Bilirubin Negative (Negative); Blood, Urine Trace (Negative); Clarity Clear (Clear); Glucose, Urine (Dipstick) Normal (Negative); Leukocyte Negative Leu/uL (Negative); Nitrite Negative (Negative); Protein, Urine (Dipstick) 50 mg/dL (Neg-Trace); RBC/HPF 0-3 HPF (0-3); Squamous Epithelial 0-3 HPF (0-3); Urobilinogen Normal mg/dL (Less than 2); WBC/HPF 0-3 HPF (0-3)
[2019-08-20] MEDS ORDERED: CCU Electrolyte Replacement 1 EACH IVPB ONE (02:46)
[2019-08-20] MEDS ORDERED: Norepinephrine 8 MG/0.9% NS 0 ML ONE (02:52)
[2019-08-20] MEDS ORDERED: cefTRIAXone\\ROCEPHIN 2 GM VIAL ONE (02:56)
[2019-08-20] MEDS ORDERED: Morphine 2 MG/ML SYRINGE SLOW IVP PRN (02:58)
[2019-08-20] MEDS ORDERED: Propofol BOLUS 1,000 MG/100 ML VIAL IV PRN (02:58)
[2019-08-20] MEDS ORDERED: Lorazepam 2 MG/ML VIAL SLOW IVP PRN (02:58)
[2019-08-20] MEDS ORDERED: Propofol 1,000 MG/100 ML VIAL IV PRN (02:58)
[2019-08-20] MEDS ORDERED: Fentanyl BOLUS 250 ML IVPB PRN (02:58)
[2019-08-20] MEDS ORDERED: PHOS-NAK 1 PKT PACK PO PRN ×2 (03:00)
[2019-08-20] MEDS ORDERED: Potassium Phosphate 15 MMOL in Sodium Chloride 0.9% 250 ML 250 ML IV PRN (03:00)
[2019-08-20] MEDS ORDERED: Magnesium Oxide 400 MG TAB PO PRN ×2 (03:00)
[2019-08-20] MEDS ORDERED: Potassium Chloride 40 MEQ in Premix Bag 1 BAG IVPB PRN (03:00)
[2019-08-20] MEDS ORDERED: Potassium Phosphate 12 MMOL in Sodium Chloride 0.9% 250 ML 250 ML IV PRN (03:00)
[2019-08-20] MEDS ORDERED: Potassium Chloride 40 MEQ in Sodium Chloride 0.9% 250 ML 250 ML IVPB PRN (03:00)
[2019-08-20] MEDS ORDERED: CCU ELECTROLYTE REPLACEMENT PROTOCOL FS PRN (03:00)
[2019-08-20] MEDS ORDERED: Potassium Phosphate 9 MMOL in Sodium Chloride 0.9% 100 ML IVPB PRN (03:00)
[2019-08-20] MEDS ORDERED: Ventilator Sedation Protocol 1 EACH FS SCH (03:00)
[2019-08-20] MEDS ORDERED: Potassium Chloride 20 MEQ TAB PO PRN (03:00)
[2019-08-20] MEDS ORDERED: Magnesium 2 GM/50 ML 2 GM in Premix Bag 1 BAG IVPB PRN (03:00)
[2019-08-20] MEDS ORDERED: Tenecteplase 50 MG - STEMI KIT ONE (03:18)
[2019-08-20] MEDS ORDERED: Levothyroxine Sodium 50 MCG TAB PO SCH (06:00)
[2019-08-20] MEDS ORDERED: methylPREDNISolone Sod Succ 40 MG VIAL IVP SCH (06:00)
--- NOTE | 2019-08-20 07:19 | SS ---
DATE OF ADMISSION: 08/20/2019 DATE OF DISCHARGE: 08/20/2019 DATE OF EXPIRATION: 08/20/2019. DISCHARGE DIAGNOSES: 1. Acute respiratory failure. 2. Chronic obstructive pulmonary disease exacerbation. 3. Shortness of breath. 4. Hypertension. HOSPITAL COURSE: The patient was a 74-year-old female, who initially presented to the hospital for worsening shortness of breath. The patient was on home oxygen, was found to be pretty hypoxic. At this time, she was brought in via EMS on a CPAP. She was given steroids and DuoNeb's, and did well initially. However, in the ER, she was put on BiPAP, started to become very short of breath and tachypneic. At this point, she was intubated. The patient initially did well. Her vitals were stable. However, upon my evaluation in the ER, the patient started becoming hypotensive. Levophed drip was started, and at this time, the patient lost her pulse and she went into a PEA arrest and CPR was initiated. The patient underwent about 4 to 5 rounds of epinephrine with CPR. She has only had a PEA arrest. The patient's niece was at the bedside. I did speak with the patient's niece and also with the patient's daughter, Magy, to discuss code status. The family decided to stop resuscitation, and at this time, the patient . PAST MEDICAL HISTORY: She had a history of COPD. She had a history of hypertension. PAST SURGICAL HISTORY: Left shoulder surgery. Tonsils and adenoids removed. Appendectomy, cardiac ablation. ALLERGIES: SHE WAS ALLERGIC TO ADHESIVE STATINS. MEDICATIONS: There was no list of her medication. REVIEW OF SYSTEMS: Unable to obtain. SOCIAL HISTORY: She was a former smoker, quit in 2006. No alcohol use. Lives with the family. PHYSICAL EXAMINATION: VITAL SIGNS: The patient's initially blood pressure was in the 1 teens over 60, sats were 98% on 50% FiO2, temperature was 98.8, heart rate was 86. GENERAL: She initially had the ET tube in. She was sedated. HEENT: Pupils were equally reactive to light. CV: S1 and S2 present. No murmurs, rubs, or gallops. LUNGS: Mild wheezing heard all over. ABDOMEN: Soft. Bowel sounds were present x2. EXTREMITIES: Pedal pulses not palpable. Her legs appeared to be pale. NEUROVASCULAR: She was again sedated and intubated. At this time, the patient lost her pulse and CPR was initiated. LABORATORY DATA: Her laboratory results were as of the following. WBCs of 10.0, hemoglobin of 14.7, hematocrit of 45.9, platelets of 294. Chemistry; sodium of 131, potassium of 3.8, BUN of 12, creatinine of 0.54. Her CO2 was 42. IMAGING STUDIES: Chest x-ray just indicated hyperinflated lungs. No pneumonia was noted. ASSESSMENT AND PLAN: The patient was a 74-year-old female, who initially came in with shortness of breath, underwent a cardiac arrest. 1. Acute hypoxic respiratory failure, unclear etiology, possibly from her worsening chronic obstructive pulmonary disease versus pulmonary embolism. The patient at this time decompensated. She initially was on BiPAP, was then intubated. She was started on DuoNeb's and steroids, and she was also given antibiotics. The patient's family member stated that she has been on antibiotics and steroids for the past few days. 2. Pulseless electrical activity arrest. She underwent a cardiac resuscitation unsuccessfully. At this time, the patient's family withdrew care. 3. Chronic obstructive pulmonary disease exacerbation. Again, she was short of breath. She was started on steroids and neb treatments, and she was put on initially a CPAP, then on a BiPAP, and then, she was intubated. I did speak with the family extensively initially before cardiac arrest, at this time, the niece, who was the primary wood fence erector of the patient, stated that she thought that the patient did not want to be resuscitated. However, the patient did have children, which would be legally to make the decision. I did speak with one of the daughters, Magy, who also spoke with her other siblings who stated that she wanted to withdraw care. I explained everything in terms of what was going on. I talked extensively with the patient's wood fence erector who was her niece and also the patient's daughter. I asked the daughter to talk with her siblings to make a decision in order to continue CPR or to withdraw care. The patient's overall outcome was very poor to start with given her significant COPD and lung disease. At this time, the family decided to withdraw, care was withdrawn. The patient at 3:27 a.m. on 08/20. Condolences were provided to the patient's family. Job ID: [id number]
[2019-08-20] MEDS ORDERED: Famotidine/PF 20 mg/2ml Vial SLOW IVP SCH (09:00)
[2019-08-20] MEDS ORDERED: Sodium Bicarb 50 MEQ/50 ML Abboject 8.4% SYRINGE ONE (09:44)
[2019-08-20] MEDS ORDERED: EPINEPHrine 1 MG/10 ML Abboject SYRINGE ONE ×2 (09:44)
[2019-08-20] MEDS ORDERED: Magnesium 5 GM/10 ML Abboject SYRINGE ONE (09:44)
--- NOTE | 2019-08-20 10:17 | RAD ---
PORTABLE CHEST ONE VIEW: 08/20/2019 12:40 a.m. HISTORY: COPD. Shortness of breath. COMPARISON: 07/05/2018 FINDINGS: Changes of COPD are again seen. The heart size is normal. No focal areas of consolidation, pneumothor aces or pleural effusions are noted. Postop changes of left shoulder arthroplasty are again seen. POS: [facility]
--- NOTE | 2019-08-20 10:18 | RAD ---
PORTABLE CHEST ONE VIEW: 08/20/2019 1:26 a.m. HISTORY: Respiratory failure. COMPARISON: Exam from earlier on the same day at 12:40 a.m. FINDINGS: Interval placement of endotracheal tube is seen with the tip just below the level of the clavicular h mann. A nasogastric tube can be traced into the stomach with the tip excluded from the film. Changes of COPD are again seen. The heart size is normal. No lobar consolidation, pneumothoraces or pleural e ffusions are noted. POS: [facility]
--- NOTE | 2019-08-20 10:21 | RAD ---
PORTABLE CHEST ONE VIEW: 08/20/2019 3:01 a.m. HISTORY: Respiratory failure. Central line placement. FINDINGS: There has been interval placement of a left subclavian central line with the tip in the projection of the SVC since earlier exam at 1:26 a.m. on the same day. Endotracheal and nasogastric tubes remain i n place. The lung apices have been excluded from the film. There is suggestion of a small left pneumo thorax. The results were called to the ER and I was informed by the ER help desk consultant that this patient had expir ed. Call was made at 8:08 a.m. at the time of interpretation. CODE CR POS: [facility]
[2019-08-20 11:37] LABS: Actual Bicarbonate (HCO3a) 39.2 mEq/L (22-28); Analyzer IN Cardio ER; Base Excess (BEa) 11.1 mEq/L (-2.0 to +3.0); Calcium, Ionized 1.04 mmol/L (1.12-1.30); Carboxyhemoglobin (COHb) 0.9 gm% (0.0-3.0); Hemoglobin (Hb) 13.2 g/dL (12.0-16.0); O2 Tension (PaO2) 80.9 mmHg (> 70.0); Potassium - ABG Lab 3.15 mmol/L (3.70-5.30); pH, Arterial 7.37 (7.35-7.45)
[2019-08-21 02:07] LABS: CO2 Tension 69.2 mmHg (35.0-45.0)
== END 2019-08-20 03:27 | disposition expired ==
LOC: ERS 00:46
DX: I46.9 Cardiac arrest, cause unspecified (principal); J96.00 Acute respiratory failure, unspecified whether with hypoxia or hypercapnia; J44.1 Chronic obstructive pulmonary disease with (acute) exacerbation; I10 Essential (primary) hypertension; E03.9 Hypothyroidism, unspecified; Z87.891 Personal history of nicotine dependence; Z79.899 Other long term (current) drug therapy; Z79.51 Long term (current) use of inhaled steroids; Z79.52 Long term (current) use of systemic steroids; Z79.2 Long term (current) use of antibiotics
CPT/HCPCS: 71045; 80053; 82550; 82805; 82962; 83605; 83880; 84484; 85025; 87040; 87086; 87804 ×2; 93005; 94760; J3010; J3101; 31500; 36415; 36416; 36556; 51702; 81003; 81015; 92950; 96361; 96365; 96366; 96368; 96374; 96375; 96376; A4353; J0171; J0456; J0696; J2704; J3475; J3490; J7611